=== PATIENT | male | born 1995 | race Caucasian/White ===

== ENCOUNTER 2023-05-24 23:15 | Emergency (ER) | payer SELFPAY ==
[~2023-05-24] VITALS: Ht 185.4 cm; Wt 68.2 kg
[~2023-05-24 23:15] MED LIST: CYCL-1 PO
[2023-05-24 23:28] VITALS: BP 143/99; PULSE 63; RESP 14; TEMP 97.8; O2SAT 100
== END 2023-05-24 23:54 | disposition home or self-care (01) ==
LOC: ER 23:15
DX: Z04.1 Encounter for examination and observation following transport accident (principal); Z88.0 Allergy status to penicillin; Z79.899 Other long term (current) drug therapy; V89.2XXA Person injured in unspecified motor-vehicle accident, traffic, initial encounter; Y93.89 Activity, other specified; Y92.89 Other specified places as the place of occurrence of the external cause; Y99.8 Other external cause status
CPT/HCPCS: 99283